=== PATIENT | female | born 1960 | race Two or more races ===

== ENCOUNTER 2020-10-06 08:16 | Outpatient (REF) | payer MEDICAID, SELFPAY ==
--- NOTE | ~2020-10-06 | MM_ITS ---
EXAMINATION: MM SCREENING DIGITAL BREAST TOMOSYNTHESIS, BILATERAL CLINICAL INFORMATION: Screening. Asymptomatic. Prior history complex sclerosing lesion right breast. The lifetime risk of breast cancer based on the Tyrer-Cuzick Model is 8%. COMPARISON: Mammography: 04/06/2020, 08/10/2019, 08/05/2019, 07/19/2019, 07/17/2018; outside mammography 12/08/2014 and targeted ultrasound right breast 12/22/2014 ([facility] TECHNIQUE: Digital breast tomosynthesis is performed in both the craniocaudal and mediolateral oblique views along with computer-aided detection (CAD). Synthesized 2D images are generated from the tomosynthesis. FINDINGS: There are scattered areas of fibroglandular density (ACR BI-RADS breast composition Category b). The right biopsy clip marker stereotactic biopsy 2018 is no longer demonstrated consistent with subsequent excisional biopsy. There is a chronic nodule upper outer right breast previously noted to represent a cyst on outside ultrasound. Neither breast shows interval mass or architectural abnormality or abnormal calcifications. No significant changes. MM/MM tomosynthesis screening BI IMPRESSION: No significant changes from prior exams. ASSESSMENT: BI-RADS 2: Benign RECOMMENDATION: Routine annual mammography screening. This patient's information was entered into a reminder system with a target due date for their next mammogram.
== END 2020-10-06 08:17 | disposition home or self-care (01) ==
LOC: HO.MAMMO 08:16
PROVIDERS: PCP Family Medicine; Visit Provider Family Medicine
DX: Z12.31 Encounter for screening mammogram for malignant neoplasm of breast (principal)
CPT/HCPCS: 77063; 77067

== ENCOUNTER 2021-11-21 08:29 | Outpatient (REF) | payer MEDICAID, SELFPAY ==
--- NOTE | ~2021-11-21 | MM_ITS ---
EXAMINATION: MM SCREENING DIGITAL BREAST TOMOSYNTHESIS, BILATERAL CLINICAL INFORMATION: Status post right breast surgery with pathology of radial scar. The lifetime risk of breast cancer based on the Tyrer-Cuzick Model is 6.7%. COMPARISON: Mammography: October 06, 2020 and studies dating back to September 02, 2013 TECHNIQUE: Digital breast tomosynthesis is performed in both the craniocaudal and mediolateral oblique views along with computer-aided detection (CAD). Synthesized 2D images are generated from the tomosynthesis. FINDINGS: There are scattered areas of fibroglandular density (ACR BI-RADS breast composition Category b). There are no new significant masses, abnormal calcifications, or other abnormalities. Postsurgical change within the right breast is seen. MM/MM tomosynthesis screening BI IMPRESSION: There are no significant changes from prior study. ASSESSMENT: BI-RADS 2: Benign RECOMMENDATION: Routine annual mammography screening. This patient's information was entered into a reminder system with a target due date for their next mammogram.
== END 2021-11-21 08:30 | disposition home or self-care (01) ==
LOC: HO.MAMMO 08:29
PROVIDERS: Visit Provider Family Medicine
DX: Z12.31 Encounter for screening mammogram for malignant neoplasm of breast (principal)
CPT/HCPCS: 77063; 77067

== ENCOUNTER 2022-11-27 09:05 | Outpatient (REF) | payer OTHER, SELFPAY ==
--- NOTE | ~2022-11-27 | MM_ITS ---
EXAMINATION: MM SCREENING DIGITAL BREAST TOMOSYNTHESIS, BILATERAL CLINICAL INFORMATION: Screening. Asymptomatic. Status post right breast excisional biopsy for radial scar. The lifetime risk of breast cancer based on the Tyrer-Cuzick Model is 4.1%. COMPARISON: Mammography: November 21, 2021 and studies dating back to December 08, 2014 TECHNIQUE: Digital breast tomosynthesis is performed in both the craniocaudal and mediolateral oblique views along with computer-aided detection (CAD). Synthesized 2D images are generated from the tomosynthesis. FINDINGS: There are scattered areas of fibroglandular density (ACR BI-RADS breast composition Category b). There are no new significant masses, abnormal calcifications, or other abnormalities. Postsurgical change again seen within the right breast. MM/MM tomosynthesis screening BI IMPRESSION: No significant changes from prior exam. ASSESSMENT: BI-RADS 2: Benign RECOMMENDATION: Routine annual mammography screening. This patient's information was entered into a reminder system with a target due date for their next mammogram.
== END 2022-11-27 09:06 | disposition home or self-care (01) ==
LOC: HO.MAMMO 09:05
PROVIDERS: PCP Student in an Organized Health Care Education/Training Program; Visit Provider Student in an Organized Health Care Education/Training Program
DX: Z12.31 Encounter for screening mammogram for malignant neoplasm of breast (principal)
CPT/HCPCS: 77063; 77067

== ENCOUNTER 2023-05-26 08:56 | Outpatient (REF) | payer OTHER, SELFPAY ==
[2023-05-26 10:17] LABS: Cholesterol 112 mg/dL (<200); HDL Cholesterol 37 mg/dL (>40); LDL Cholesterol Calculated 58 mg/dL (<100); Triglycerides 89 mg/dL (<150)
== END 2023-05-26 08:57 | disposition home or self-care (01) ==
LOC: HO.LAB 08:56
PROVIDERS: Visit Provider Student in an Organized Health Care Education/Training Program
DX: E11.3299 Type 2 diabetes mellitus with mild nonproliferative diabetic retinopathy without macular edema, unspecified eye (principal); Z79.4 Long term (current) use of insulin
CPT/HCPCS: 36415; 80061

== ENCOUNTER 2023-06-25 08:10 | Outpatient (AMB) | payer OTHER, SELFPAY ==
--- NOTE | 2023-06-25 08:17 | A.OFFVIS_ITS ---
Intake Vital Signs 06/25/23 08:19 Height 5 ft 0.5 in Weight 183 lb BMI 35.1 BP 124/67 Blood Pressure Location Lt brachial Position Sitting Pulse 100 Intake Visit Reasons: Colonoscopy Screening Intake Note: Patient new consult for 2nd pre colonoscopy screening. Patient cc: acid reflex, swallowing problem and abdominal pain with burning sensation. 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: No Accompanied by: Self / Same As Patient Allergies acetaminophen [From Vicodin] Allergy (Intermediate, Verified 06/25/23 16:09) Rash hydrocodone [From Vicodin] Allergy (Intermediate, Verified 06/25/23 16:09) Rash oxycodone [From Percocet] Allergy (Intermediate, Verified 06/25/23 16:09) Rash pineapple Allergy (Intermediate, Verified 06/25/23 16:09) Unknown aspirin [ASPIRIN] Allergy (Unknown, Verified 06/25/23 08:14) RASH/HIVES pregabalin [From LYRICA] Allergy (Unknown, Verified 06/25/23 08:14) OVERALL SWELLING HPI Colonoscopy Screening HPI Details 62 Y/O female here for a pre procedureal meeting to discuss a screening colonoscopy. She is referred by Zena Dickerson MD of [facility]. PMX Hypertension Diabetes Migraines Allergic rhinitis Asthma High cholesterol Depression/anxiety * SURGICAL HISTORY CYst axillary, breast cyst CHolecystectomy Tonsillectomy * ALLERGIES Aspirin - itching Pregabalin - Lyrica - oral swelling Percocet - rash pineapple - rash vicodin - rash * [place] LABS: no recent labs TODAY'S VISIT She says she had a colonoscopy in [place] years ago and they found polyps. She tolerated it well. She denies bowel problems and says she has no upper stomach problems now, but at times I have a lot of burning in my stomach. She points to the epigastric area. This will happen 1-2 times a week. At times she can't even look at food with occasional vomiting - but the vomiting is more tied to her migraines. Her asthma is well controlled and she denies any cardiac problems. There are no prior problems with anesthesia or sedation.. No ID problems She thinks her brother may have had colon polyps. No known CRC> Start omeprazole qd, get HP breath, add EGD. ROV 6 weeks. PFSH Surgical History (Updated 06/25/23 @ 16:07 by KRISTINA Wong) H/O removal of cyst Hx of tonsillectomy History of cholecystectomy Social History (Updated 06/25/23 @ 08:17 by Cristina Zaragoza) Household Members: Family Alcohol intake: never Patient Tobacco Use Status: Never used Tobacco Review of Systems Const Denies fatigue, Denies fever(s), Denies night sweats, Denies poor appetite and Denies weight loss ENT Reports Normal hearing present, Denies dental pain, Denies dysphagia, Denies hearing loss, Denies mouth pain, Denies odynophagia, Denies throat swelling, Denies tongue swelling and Reports other (Dentition adequate) Card Reports no additional complaints Resp Reports no additional complaints GI Reports abdominal pain, Denies melena, Denies bloating, Denies hematochezia, Denies constipation, Denies GI cramping, Denies dysphagia, Denies excessive fla tus, Denies early satiety, Reports heartburn, Denies diarrhea, Reports nausea, Denies odynophagia, Reports vomiting and Denies hematemesis Skin/Breast Denies pruritus, Denies lesions, Denies rash and Denies jaundice Neuro Reports Normal hearing present and Denies Abnormal speech present Endo Denies fatigue Aller/Immun Denies throat swelling and Denies tongue swelling Physical Exam Vital Signs: Last Vital Signs Pulse 100 06/25/23 08:19 BP 124/67 06/25/23 08:19 BMI result Body Mass Index 35.1 Const General: cooperative, no acute distress, well developed and well groomed Nutritional Appearance: well nourished and obese morbidly obese Orientation/consciousness: oriented to person, oriented to place and oriented to time Limitations: No language barrier HEENT Head: Yes normocephalic and Yes atraumatic Eyes General: appearance normal, both eyes and all related structures Pupils: Equal, round and reactive pupils present Neck Neck: Yes normal visual inspection and Yes no lymphadenopathy Thyroid: Thyroid normal Resp Effort & Inspection: normal respiratory effort and able to speak in complete sentences Auscultation: clear to auscultation bilaterally Cardio Rate: regular rate Rhythm: regular rhythm Heart sounds: Normal, physiologic split S2 sound present Peripheral pulses: radial pulses present and posterior tibial pulses present GI Inspection: No distended, Yes Abdominal panniculus present and Yes obesity Palpation (GI): Soft to palpation, Tenderness to palpation present (GI) in the epigastrum, no guarding, not rigid and No hepatosplenomegaly present Percussion: Yes normal to percussion Auscultation: normal bowel sounds Rectal Exam - Female: deferred Skin General skin exam: no rashes or lesions noted, turgor normal, skin not dry, no jaundice, No spider nevi and no striae Rashes: no rashes Nails: normal Neuro General: oriented to person, oriented to place and oriented to time Cranial nerves: Yes Equal, round and reactive pupils present and Yes Normal hearing present Speech: No Abnormal speech present Extrem General: Yes normal to inspection, No clubbing, No cyanosis and No edema Psych Appearance: grossly normal and well kempt Mental Status: mental status grossly normal Speech and movement: Normal speech and movement present Affect: normal affect Attitude: cooperative Thought process: Normal thought process present and not confabulating Thought content: Normal thought content present Insight: Fair insight present (Psych) Judgement: Fair judgement present (Psych) Assessment & Plan Assessment & Plan (1) Pre-op examination: Code(s): Z01.818 - Encounter for other preprocedural examination Plan: She says she had a colonoscopy in [place] years ago and they found polyps. She tolerated it well. She denies bowel problems and says she has no upper stomach problems now, but at times I have a lot of burning in my stomach. She points to the epigastric area. This will happen 1-2 times a week. iAt times she can't even look at food with occasional vomiting - but the vomiting is more tied to her migraines. Her asthma is well controlled and she denies any cardiac problems. There are no prior problems with anesthesia or sedation. No ID problems She thinks her brother may have had colon polyps. No known CRC> Start omeprazole qd, get HP breath, add EGD. ROV 6 weeks. (2) Family history of polyps in the colon: Code(s): Z83.719 - Family history of colon polyps, unspecified (3) Epigastric abdominal pain: Code(s): R10.13 - Epigastric pain Orders: Orders Comprehensive Met. Panel Today R10.13 - Epigastric pain, Z01.818 - Encounter for other preprocedural examination Complete Blood Count Auto Diff Today R10.13 - Epigastric pain, Z01.818 - Encounter for other preprocedural examination EGD/[place] Combo - GI Use Only Today R10.13 - Epigastric pain H Pylori Breath Test Today A04.8 - Other specified bacterial intestinal infections Medications: New bisacodyl (Dulcolax (bisacodyl)) 10 mg (2 x 5 mg) PO BEDTIME 2 days 4 tabs 0RF omeprazole 40 mg PO DAILY 30 days 30 caps 3RF Coding Level of Care Code New Pt Level 3 (02134) Diagnoses Pre-op examination Z01.818 Family history of polyps in the colon Z83.719 Epigastric abdominal pain R10.13
[2023-06-25 08:19] VITALS: BP 124/67; PULSE 100; BMI 35.1
== END 2023-06-25 09:26 | disposition home or self-care (01) ==
PROVIDERS: PCP Student in an Organized Health Care Education/Training Program; Visit Provider Nurse Practitioner
DX: Z01.818 Encounter for other preprocedural examination (principal); Z12.11 Encounter for screening for malignant neoplasm of colon; Z83.719 Family history of colon polyps, unspecified; R10.13 Epigastric pain
CPT/HCPCS: S0285

== ENCOUNTER 2023-06-25 08:10 | Outpatient (REF) | payer OTHER, SELFPAY ==
[2023-06-25 09:42] LABS: Basophils Absolute Auto 0.1 X10*3/uL (0.0-0.2); Basophils Percent Auto 0.6 % (0-2); Eosinophils Absolute Auto 0.2 X10*3/uL (0.0-0.4); Eosinophils Percent Auto 1.7 % (0-4); Hematocrit 41.6 % (37.0-47.0); Imm Gran Abs Auto 0.08 X10*3/uL (0.00-0.03); Imm Gran Pct Auto 0.7 % (0.0-0.4); Lymphocytes Absolute Auto 2.9 X10*3/uL (1.2-4.9); Lymphocytes Percent Auto 25.7 % (20-40); MANUAL DIFF FLAG NO; Mean Corpuscular HGB Conc 33.7 g/dl (31.0-35.0); Mean Corpuscular Hemoglobin 30.4 pg (27.0-33.0); Mean Corpuscular Volume 90.2 fL (80.0-98.0); Mean Platelet Volume 10.1 fL (9.4-12.3); Monocytes Absolute Auto 0.9 X10*3/uL (0.1-1.2); Monocytes Percent Auto 7.5 % (2-11); Neutrophils Absolute Auto 7.3 x10*3/uL (2.0-8.3); Neutrophils Percent Auto 63.8 % (45-73); Platelet Count 380 X10*3/uL (160-400); Red Blood Count 4.61 X10*6/uL (4.20-5.50); Red Cell Distribution Width 13.3 % (11.0-16.0); White Blood Count 11.5 X10*3/uL (4.8-10.8)
[2023-06-25 10:07] LABS: Alanine Aminotransferase 32 U/L (0-31); Albumin Level 4.2 g/dL (3.5-5.0); Alkaline Phosphatase 146 U/L (39-117); Anion Gap 13 (12-20); Aspartate Amino Transferase 24 U/L (5-31); Bilirubin Total 0.3 mg/dL (0.0-1.0); Blood Urea Nitrogen 9 mg/dL (9-16); Calcium 9.5 mg/dL (8.4-10.2); Carbon Dioxide 23 mmol/L (22-29); Chloride 110 mmol/L (96-108); Estimated Glomerular Filt Rate > 60; Glucose Random 132 mg/dL (60-115); Potassium 3.9 mmol/L (3.3-5.1); Sodium 142 mmol/L (135-145); Total Protein 7.4 g/dL (6.5-8.0)
[2023-06-26 13:58] LABS: H Pylori Breath Test Positive (Negative)
== END 2023-06-25 08:11 | disposition home or self-care (01) ==
LOC: HO.LAB 08:10
PROVIDERS: PCP Student in an Organized Health Care Education/Training Program; Visit Provider Nurse Practitioner
DX: Z01.818 Encounter for other preprocedural examination (principal); R10.13 Epigastric pain; A04.8 Other specified bacterial intestinal infections; Z83.719 Family history of colon polyps, unspecified
CPT/HCPCS: 36415; 80053; 83013; 85025

== ENCOUNTER 2023-08-11 08:49 | Outpatient (AMB) | payer OTHER, SELFPAY ==
--- NOTE | 2023-08-11 09:03 | MHC.OFFVIS ---
Intake Vital Signs 08/11/23 09:06 Height 5 ft 0.5 in Weight 185 lb 3.013 oz BMI 35.6 BP 140/76 H Blood Pressure Location Lt brachial Position Sitting Pulse 91 Intake Visit Reasons: follow up 6 weeks Intake Note: Patient returns to in office 6 weeks follow up of epigastric pain and H pylori. CC: Kymberly in office today to discuss lab results. Patient states I'm not taking any more pills because those gave diarrhea . She completed abx course and states she is doing better from epigastric pain and acid reflux. Dental Hygienist Required: No Accompanied by: Self / Same As Patient Allergies acetaminophen [From Vicodin] Allergy (Intermediate, Verified 08/11/23 09:11) Rash hydrocodone [From Vicodin] Allergy (Intermediate, Verified 08/11/23 09:11) Rash oxycodone [From Percocet] Allergy (Intermediate, Verified 08/11/23 09:11) Rash pineapple Allergy (Intermediate, Verified 08/11/23 09:11) Unknown aspirin [ASPIRIN] Allergy (Unknown, Verified 08/11/23 09:11) RASH/HIVES pregabalin [From LYRICA] Allergy (Unknown, Verified 08/11/23 09:11) OVERALL SWELLING HPI follow up 6 weeks HPI Details Assessment & Plan (1) Pre-op examination: Code(s): Z01.818 - Encounter for other preprocedural examination Plan: She says she had a colonoscopy in [place] years ago and they found polyps. She tolerated it well. She denies bowel problems and says she has no upper stomach problems now, but at times I have a lot of burning in my stomach. She points to the epigastric area. This will happen 1-2 times a week. iAt times she can't even look at food with occasional vomiting - but the vomiting is more tied to her migraines. Her asthma is well controlled and she denies any cardiac problems. There are no prior problems with anesthesia or sedation. No ID problems She thinks her brother may have had colon polyps. No known CRC> Start omeprazole qd, get HP breath, add EGD. ROV 6 weeks. (2) Family history of polyps in the colon: Code(s): Z83.719 - Family history of colon polyps, unspecified (3) Epigastric abdominal pain: Code(s): R10.13 - Epigastric pain Orders: Orders Comprehensive Met. Panel Today R10.13 - Epigastri c pain, Z01.818 - Encounter for othe r preprocedural ex amination Complete Blood Cou nt Auto Diff Today R10.13 - Epigastri c pain, Z01.818 - Encounter for othe r preprocedural ex amination EGD/[place] Combo - G I Use Only Today R10.13 - Epigastri c pain H Pylori Breath Te st Today A04.8 - Other spec ified bacterial in testinal infection s Medications: New bisacodyl (Dulcola x (bisacodyl)) 10 mg (2 x 5 mg) P O BEDTIME 2 days 4 tabs 0RF omeprazole 40 mg PO DAILY 30 days 30 caps 3RF LABS: Laboratory Tests 06/25/23 06/25/23 06/25/23 09:13 09:35 09:35 WBC 11.5 H Hgb 14.0 Hct 41.6 Plt Count 380 Estimated GFR > 60 Total Bilirubin 0.3 AST 24 ALT 32 H Alkaline Phosphata se 146 H H. pylori Breath T est Positive CORRESPONDENCE On 07/02/23 @ 15:42 Alyssa Oreilly Wrote To Alyssa Oreilly (2) Have her stop on abx and take only one for 2 weeks then re start the other to reduce side effects On 07/02/23 @ 10:43 Pati Alvarado Wrote To Alyssa Oreilly Patient called back stating that she gas been having abdominal pain, diarrhea, nausea, and dizziness from H pylori treatment. She did not know what probiotics to buy because they had too many options in the pharmacy per PT. We were able to find one from [employer] online and she will be getting it. She was reminded the importance of completing treatment and to eat a snack before taking medications. Please advise. On 06/30/23 @ 09:29 Mackenzie Bennett Wrote To Mackenzie Bennett noted, patient all set. Mackenzie Bennett completed item. On 06/30/23 @ 08:13 AfiaAlyssa Wrote To Mackenzie Bennett I think I did change it to BID... On 06/29/23 @ 14:25 Pati Alvarado Wrote To Oreilly Patient advised per message below, she verbalized understanding and agreed to instructions given. On 06/29/23 @ 14:11 Mackenzie Bnenett Wrote To AfiaNovember do you want to send sep script for BID dosing of the Omeprazole? I see patient takes Omeprazole but if they fill this script then they will consider it an 'early fill' the next time she goes to fill it and insurance won't cover it. On 06/29/23 @ 13:15 AfiaAlyssa Wrote To Mackenzie Bennett Please call pt and advise her she has an H pylori infection and this is likely the cause of the stomach burning. Sending quadruple therapy, advise her NOT ETOH r/t flagyl, take a probiotic, (no bismuth as she is asa allergic). Emphasize importance of completing therapy. Reschedule her to 6 weeks out from today or tomorrow depending on when she plans on starting the antibiotics. Check with her pharmacy and be sure she will get bid omeprazole or if this needs a PA....... TODAY'S VISIT QUADRUPLE THERAPY SEND 06/29/2023 She completed the therapy but my butt paid the lance! She had severe diarrhea, but this has resolved - even with taking a probiotic. She also had a canadida infection and was tx'ed by her PCP with diflucan. But the epigastic pain is improved. She does not want to do another stool antigen, so she will wean off of the omeprazole and we will bring her back for a breath test. She is aware she needs to be off of the PPI for 2 weeks. ROV 6-8 weeks. PFSH Surgical History H/O removal of cyst Hx of tonsillectomy History of cholecystectomy Social History Household Members: Family Alcohol intake: never Patient Tobacco Use Status: Never used Tobacco Review of Systems Const Denies fatigue, Denies fever(s), Denies night sweats, Denies poor appetite and Denies weight loss Eyes Details: glasses Reports requires corrective lenses ENT Reports Normal hearing present, Denies dental pain, Denies dysphagia, Denies hearing loss, Denies mouth pain, Denies odynophagia, Denies throat swelling, Denies tongue swelling and Reports other (Dentition adequate) Card Reports no additional complaints Resp Reports no additional complaints GI Denies abdominal pain, Denies melena, Denies bloating, Denies hematochezia, Denies constipation, Denies GI cramping, Denies dysphagia, Denies excessive flatus, Denies early satiety, Denies heartburn, Denies diarrhea, Denies nausea, Denies odynophagia, Denies vomiting and Denies hematemesis Skin/Breast Denies pruritus, Denies lesions, Denies rash and Denies jaundice Neuro Reports Normal hearing present and Denies Abnormal speech present Endo Denies fatigue Aller/Immun Denies throat swelling and Denies tongue swelling Physical Exam Vital Signs: Last Vital Signs Pulse 91 08/11/23 09:06 BP 140/76 H 08/11/23 09:06 BMI result Body Mass Index 35.6 Const General: cooperative, no acute distress, well developed and well groomed Nutritional Appearance: well nourished and obese Orientation/consciousness: oriented to person, oriented to place and oriented to time Limitations: No language barrier HEENT Head: Yes normocephalic and Yes atraumatic Eyes General: appearance normal, both eyes and all related structures Pupils: Equal, round and reactive pupils present Neck Neck: Yes normal visual inspection and Yes no lymphadenopathy Thyroid: Thyroid normal Resp Effort & Inspection: normal respiratory effort and able to speak in complete sentences Auscultation: clear to auscultation bilaterally Cardio Rate: regular rate Rhythm: regular rhythm Heart sounds: Normal, physiologic split S2 sound present Peripheral pulses: radial pulses present and posterior tibial pulses present GI Inspection: No distended, Yes Abdominal panniculus present and Yes obesity Palpation (GI): Soft to palpation, nontender, no guarding, not rigid and No hepatosplenomegaly present Percussion: Yes normal to percussion Auscultation: normal bowel sounds Rectal Exam - Female: deferred Skin General skin exam: no rashes or lesions noted, turgor normal, skin not dry, no jaundice, No spider nevi and no striae Rashes: no rashes Nails: normal Neuro General: oriented to person, oriented to place and oriented to time Cranial nerves: Yes Equal, round and reactive pupils present and Yes Normal hearing present Speech: No Abnormal speech present Extrem General: Yes normal to inspection, No clubbing, No cyanosis and No edema Psych Appearance: grossly normal and well kempt Mental Status: mental status grossly normal Speech and movement: Normal speech and movement present Affect: normal affect Attitude: cooperative Thought process: Normal thought process present and not confabulating Thought content: Normal thought content present Insight: Limited insight present (Psych) Judgement: Limited judgement present (Psych) Assessment & Plan Assessment & Plan (1) H. pylori infection: Code(s): A04.8 - Other specified bacterial intestinal infections (2) Epigastric abdominal pain: Code(s): R10.13 - Epigastric pain Plan QUADRUPLE THERAPY SEND 06/29/2023 She completed the therapy but my butt paid the lance! She had severe diarrhea, but this has resolved - even with taking a probiotic. She also had a canadida infection and was tx'ed by her PCP with diflucan. But the epigastic pain is improved. She does not want to do another stool antigen, so she will wean off of the omeprazole and we will bring her back for a breath test. She is aware she needs to be off of the PPI for 2 weeks. ROV 6-8 weeks. Medications: On Hold omeprazole Hold Comment: Doctor's Order 40 mg PO BID 30 days 60 caps 3RF A04.8 - Other specified bacterial intestinal infections Coding Level of Care Code Est Pt Level 3 (53101) Diagnoses H. pylori infection A04.8 Epigastric abdominal pain R10.13
[2023-08-11 09:06] VITALS: BP 140/76; PULSE 91; BMI 35.6
== END 2023-08-11 09:37 | disposition home or self-care (01) ==
PROVIDERS: PCP Student in an Organized Health Care Education/Training Program; Referring Provider Student in an Organized Health Care Education/Training Program; Visit Provider Nurse Practitioner
DX: A04.8 Other specified bacterial intestinal infections (principal); R10.13 Epigastric pain
CPT/HCPCS: 99213

== ENCOUNTER → 2023-08-11 08:49 | Outpatient (BNVA) | payer OTHER, SELFPAY | PROVIDERS: PCP Student in an Organized Health Care Education/Training Program; Visit Provider Nurse Practitioner ==

== ENCOUNTER 2023-10-29 08:12 | Outpatient (AMB) | payer OTHER, SELFPAY ==
--- NOTE | 2023-10-29 08:21 | MHC.OFFVIS ---
Intake Vital Signs 10/29/23 08:22 Height 5 ft 0.05 in Weight 186 lb BMI 36.3 BP 154/86 H Blood Pressure Location Lt brachial Position Sitting Pulse 88 Intake Visit Reasons: 8 week follow up Intake Note: Patient follow up for H-pylori re-check Patient denies any GI issues just a cough for months and months. 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 pylori infection: Code(s): A04.8 - Other specified bacterial intestinal infections (2) Epigastric abdominal pain: Code(s): R10.13 - Epigastric pain Plan QUADRUPLE THERAPY SEND 06/29/2023 She completed the therapy but my butt paid the lance! She had severe diarrhea, but this has resolved - even with taking a probiotic. She also had a [place]ad[place] infection and was tx'ed by her PCP with diflucan. But the epigastic pain is improved. She does not want to do another stool antigen, so she will wean off of the omeprazole and we will bring her back for a breath test. She is aware she needs to be off of the PPI for 2 weeks. ROV 6-8 weeks. Medications: On Hold omeprazole Hold Comment: Doctor' s Order 40 mg PO BID 30 d ays 60 caps 3RF A04.8 - Other spec ified bacterial in testinal infection s TODAY'S VISIT She continues to feel well of of the PPI. I will call with HP breath test. ROV p.r.nRay [facility] Surgical History H/O removal of cyst Hx of tonsillectomy History of cholecystectomy Social History Household Members: Family Alcohol intake: never Patient Tobacco Use Status: Never used Tobacco Review of Systems Const Denies fatigue, Denies fever(s), Denies night sweats, Denies poor appetite and Denies weight loss ENT Reports Normal hearing present, Denies dental pain, Denies dysphagia, Denies hearing loss, Denies mouth pain, Denies odynophagia, Denies throat swelling, Denies tongue swelling and Reports other (Dentition adequate) Card Reports no additional complaints Resp Reports no additional complaints GI Details: Denies abdominal pain, Denies melena, Denies bloating, Denies hematochezia, Denies constipation, Denies GI cramping, Denies dysphagia, Denies excessive flatus, Denies early satiety, Denies heartburn, Denies diarrhea, Denies nausea, Denies odynophagia, Denies vomiting and Denies hematemesis Skin/Breast Denies pruritus, Denies lesions, Denies rash and Denies jaundice Neuro Reports Normal hearing present and Denies Abnormal speech present Endo Denies fatigue Aller/Immun Denies throat swelling and Denies tongue swelling Physical Exam Vital Signs: Last Vital Signs Pulse 88 10/29/23 08:22 BP 154/86 H 10/29/23 08:22 BMI result Body Mass Index 36.3 Const General: cooperative, no acute distress, well developed and well groomed Nutritional Appearance: well nourished and obese Orientation/consciousness: oriented to person, oriented to place and oriented to time Limitations: No language barrier HEENT Head: Yes normocephalic and Yes atraumatic Eyes General: appearance normal, both eyes and all related structures Pupils: Equal, round and reactive pupils present Neck Neck: Yes normal visual inspection and Yes no lymphadenopathy Thyroid: Thyroid normal Resp Effort & Inspection: normal respiratory effort and able to speak in complete sentences Auscultation: clear to auscultation bilaterally Cardio Rate: regular rate Rhythm: regular rhythm Heart sounds: Normal, physiologic split S2 sound present Peripheral pulses: radial pulses present and posterior tibial pulses present GI Inspection: No distended, No Abdominal panniculus present and Yes obesity Palpation (GI): Soft to palpation, nontender, no guarding, not rigid and No hepatosplenomegaly present Percussion: Yes normal to percussion Auscultation: normal bowel sounds Rectal Exam - Female: deferred Skin General skin exam: no rashes or lesions noted, turgor normal, skin not dry, no jaundice, No spider nevi and no striae Rashes: no rashes Nails: normal Neuro General: oriented to person, oriented to place and oriented to time Cranial nerves: Yes Equal, round and reactive pupils present and Yes Normal hearing present Speech: No Abnormal speech present Extrem General: Yes normal to inspection, No clubbing, No cyanosis and No edema Psych Appearance: grossly normal and well kempt Mental Status: mental status grossly normal Speech and movement: Normal speech and movement present Affect: normal affect Attitude: cooperative Thought process: Normal thought process present and not confabulating Thought content: Normal thought content present Insight: Fair insight present (Psych) Judgement: Fair judgement present (Psych) Assessment & Plan Assessment & Plan (1) H. pylori infection: Code(s): A04.8 - Other specified bacterial intestinal infections (2) Epigastric abdominal pain: Code(s): R10.13 - Epigastric pain Plan She continues to feel well of of the PPI. I will call with HP breath test. ERAN p.r.n. Orders: Orders H Pylori Breath Test Today Coding Level of Care Code Est Pt Level 3 (29393) Diagnoses H. pylori infection A04.8 Epigastric abdominal pain R10.13
[2023-10-29 08:22] VITALS: BP 154/86; PULSE 88; BMI 36.3
== END 2023-10-29 09:07 | disposition home or self-care (01) ==
PROVIDERS: PCP Student in an Organized Health Care Education/Training Program; Referring Provider Student in an Organized Health Care Education/Training Program; Visit Provider Nurse Practitioner
DX: A04.8 Other specified bacterial intestinal infections (principal); R10.13 Epigastric pain
CPT/HCPCS: 99213

== ENCOUNTER 2023-10-29 08:12 | Outpatient (REF) | payer OTHER, SELFPAY ==
[2023-10-30 11:26] LABS: H Pylori Breath Test Negative (Negative)
== END 2023-10-29 08:13 | disposition home or self-care (01) ==
LOC: HO.HHCLNP 08:12
PROVIDERS: PCP Student in an Organized Health Care Education/Training Program; Visit Provider Nurse Practitioner
DX: A04.8 Other specified bacterial intestinal infections (principal); R10.13 Epigastric pain
CPT/HCPCS: 83013

== ENCOUNTER 2023-12-04 09:41 | Outpatient (REF) | payer OTHER, SELFPAY ==
--- NOTE | ~2023-12-04 | MM_ITS ---
EXAMINATION: MM SCREENING DIGITAL BREAST TOMOSYNTHESIS, BILATERAL CLINICAL INFORMATION: Screening. Asymptomatic. This patient is status post excision of a complex sclerosing lesion of the right breast. COMPARISON: Mammography: This study is compared with prior exams dating back to 2019. TECHNIQUE: Digital breast tomosynthesis is performed in both the craniocaudal and mediolateral oblique views along with computer-aided detection (CAD). Synthesized 2D images are generated from the tomosynthesis. FINDINGS: There are scattered areas of fibroglandular density (ACR BI-RADS breast composition Category b). There are no significant masses, abnormal calcifications, or other abnormalities. There is a small amount of fat necrosis in the upper outer quadrant of the right breast along with other postsurgical changes from prior benign excision. MM/MM tomosynthesis screening BI IMPRESSION: No mammographic evidence of malignancy. ASSESSMENT: BI-RADS BI-RADS 2 - Benign Findings RECOMMENDATION: Routine annual mammography screening. 1 year F/U This examination should not preclude the clinical evaluation of a suspicious palpable abnormality. This patient's information was entered into a reminder system with a target due date for their next mammogram.
== END 2023-12-04 09:42 | disposition home or self-care (01) ==
LOC: HO.MAMMO 09:41
PROVIDERS: Visit Provider Student in an Organized Health Care Education/Training Program
DX: Z12.31 Encounter for screening mammogram for malignant neoplasm of breast (principal)
CPT/HCPCS: 77063; 77067

== ENCOUNTER → 2023-12-04 10:15 | Outpatient (BNV) | payer OTHER, SELFPAY | PROVIDERS: Visit Provider Radiology Diagnostic Radiology | DX: Z12.31 Encounter for screening mammogram for malignant neoplasm of breast (principal) | CPT/HCPCS: 77063; 77067 ==

== ENCOUNTER 2024-12-16 09:56 | Outpatient (REF) | payer MEDICARE, MEDICAID, SELFPAY | END 2024-12-16 09:57 | disposition home or self-care (01) | LOC: HO.MAMMO 09:56 | PROVIDERS: PCP Student in an Organized Health Care Education/Training Program; Visit Provider Student in an Organized Health Care Education/Training Program | DX: Z12.31 Encounter for screening mammogram for malignant neoplasm of breast (principal) | CPT/HCPCS: 77063; 77067 ==

== ENCOUNTER → 2024-12-16 10:15 | Outpatient (BNV) | payer MEDICARE, MEDICAID, SELFPAY | PROVIDERS: PCP Student in an Organized Health Care Education/Training Program; Visit Provider Internal Medicine | DX: Z12.31 Encounter for screening mammogram for malignant neoplasm of breast (principal) | CPT/HCPCS: 77063; 77067 ==